=== PATIENT | male | born 1990 | race Asian ===

== ENCOUNTER 2022-08-15 17:05 | Emergency (ER) | payer OTHER ==
[2022-08-15 17:34] VITALS: BP 126/69; PULSE 97; RESP 17; TEMP 97.9; BMI 25.1
== END 2022-08-15 18:30 | disposition home or self-care (01) ==
LOC: JERFT 17:05 → JER 17:05 → JERFT 18:30
PROC: 2W3KX1Z Immobilization of Left Finger using Splint (ICD-10-PCS; principal; 2022-08-15)
DX: S62.667A Nondisplaced fracture of distal phalanx of left little finger, initial encounter for closed fracture (principal); W23.1XXA Caught, crushed, jammed, or pinched between stationary objects, initial encounter
CPT/HCPCS: 73130-TC-LT-FY; 99282-25